=== PATIENT | male | born 1940 | race Hispanic/Latino ===

== ENCOUNTER 2017-11-08 18:32 | Emergency (ER) | payer MEDICARE ==
[2017-11-08] MEDS ORDERED: BISACODYL 10 MG SUPP.RECT RC ONE (19:45)
== END 2017-11-08 19:56 | disposition home or self-care (01) ==
LOC: EDH 18:32
DX: K59.00 Constipation, unspecified (principal); Z87.891 Personal history of nicotine dependence
CPT/HCPCS: 74018

== ENCOUNTER 2017-11-14 13:30 | Emergency (ER) | payer MEDICARE | END 2017-11-14 14:30 | disposition home or self-care (01) | LOC: EDH 13:30 | DX: M17.11 Unilateral primary osteoarthritis, right knee (principal) ==

== ENCOUNTER 2017-11-19 14:01 | Emergency (ER) | payer MEDICARE ==
[2017-11-19] MEDS ORDERED: KETOROLAC TROMETHAMINE 15MG/ML ONE (14:45)
[2017-11-19] MEDS ORDERED: DEXAMETHASONE SOD PHOSPHATE 4 MG/ML 1ML VIAL ONE (14:45)
== END 2017-11-19 15:37 | disposition home or self-care (01) ==
LOC: EDH 14:01
DX: G89.29 Other chronic pain (principal); M25.561 Pain in right knee
CPT/HCPCS: 96372 ×2; 99284; J1100; J1885

== ENCOUNTER 2017-11-28 17:45 | Emergency (ER) | payer MEDICARE ==
[2017-11-28 18:06] LABS: BASOPHILS % (AUTO) 0.2 % (0.0-5.0); EOSINOPHILS % (AUTO) 0.2 % (0.0-8.0); HEMATOCRIT 38.3 % (42-54); LYMPHOCYTES % (AUTO) 18.9 % (21.0-51.0); MEAN CORPUSCULAR HEMOGLOBIN 30.9 pg (27.0-33.0); MEAN CORPUSCULAR HGB CONC 34.4 g/dL (32.0-36.0); MEAN CORPUSCULAR VOLUME 89.9 fL (79-99); MONOCYTES % (AUTO) 9.2 % (3.0-13.0); NEUTROPHILS % (AUTO) 71.5 % (40.0-77.0); PLATELET COUNT (AUTO) 111 K/uL (130-400); RED BLOOD CELL COUNT(AUTO) 4.26 MIL/uL (4.50-6.20)
[2017-11-28 18:16] LABS: CREATININE 0.7 mg/dL (0.5-1.5); POTASSIUM 3.8 mmol/L (3.5-5.1)
[2017-11-28 18:21] LABS: ALBUMIN 3.6 g/dL (3.5-5.0); BILIRUBIN,TOTAL 0.6 mg/dL (0.2-1.0)
[2017-11-28] MEDS ORDERED: LACTULOSE 20 GM/30 ML UDCUP ONE (18:42)
== END 2017-11-28 19:11 | disposition home or self-care (01) ==
LOC: EDH 17:45
DX: K59.00 Constipation, unspecified (principal); R14.0 Abdominal distension (gaseous)
CPT/HCPCS: 36415; 74021; 80053; 85025

== ENCOUNTER 2017-12-20 20:01 | Emergency (ER) | payer OTHER, MEDICARE ==
[2017-12-20] MEDS ORDERED: DOCUSATE SODIUM 100 MG CAP PO ONE (23:12)
[2017-12-20 23:14] LABS: BASOPHILS % (AUTO) 0.8 % (0.0-5.0); EOSINOPHILS % (AUTO) 0.5 % (0.0-8.0); HEMATOCRIT 36.8 % (42-54); LYMPHOCYTES % (AUTO) 25.4 % (21.0-51.0); MEAN CORPUSCULAR HEMOGLOBIN 30.9 pg (27.0-33.0); MEAN CORPUSCULAR HGB CONC 34.5 g/dL (32.0-36.0); MEAN CORPUSCULAR VOLUME 89.6 fL (79-99); NEUTROPHILS % (AUTO) 64.3 % (40.0-77.0); PLATELET COUNT (AUTO) 86 K/uL (130-400); RED BLOOD CELL COUNT(AUTO) 4.11 MIL/uL (4.50-6.20); RED CELL DISTRIBUTION WIDTH 15.4 % (11.0-15.5); WHITE BLOOD COUNT (AUTO) 4.8 K/uL (4.8-10.8)
[2017-12-20 23:33] LABS: ALBUMIN 3.5 g/dL (3.5-5.0); BILIRUBIN,TOTAL 0.8 mg/dL (0.2-1.0); CREATININE 0.6 mg/dL (0.5-1.5); POTASSIUM 4.3 mmol/L (3.5-5.1); TOTAL PROTEIN, SERUM 6.9 g/dL (6.0-8.3)
== END 2017-12-20 23:26 | disposition home or self-care (01) ==
LOC: EDH 20:01
DX: R10.84 Generalized abdominal pain (principal); K59.00 Constipation, unspecified; M25.562 Pain in left knee; Z98.890 Other specified postprocedural states; Z87.891 Personal history of nicotine dependence
CPT/HCPCS: 36415; 74018; 80053; 83690; 85025

== ENCOUNTER 2018-04-03 13:33 | Inpatient (IN) | payer OTHER, MEDICARE ==
[~2018-04-03] VITALS: Ht 152.4 cm; Wt 39.0 kg
[2018-04-03] MEDS ORDERED: ACETAMINOPHEN 325 MG TAB ONE (14:15)
[2018-04-03 14:28] LABS: BASOPHILS % (AUTO) 0.2 % (0.0-5.0); HEMATOCRIT 39.1 % (42-54); LYMPHOCYTES % (AUTO) 7.6 % (21.0-51.0); MEAN CORPUSCULAR HGB CONC 33.7 g/dL (32.0-36.0); MEAN CORPUSCULAR VOLUME 88.9 fL (79-99); MONOCYTES % (AUTO) 3.8 % (3.0-13.0); NEUTROPHILS % (AUTO) 88.4 % (40.0-77.0); PLATELET COUNT (AUTO) 101 K/uL (130-400); RED CELL DISTRIBUTION WIDTH 15.4 % (11.0-15.5); WHITE BLOOD COUNT (AUTO) 10.9 K/uL (4.8-10.8)
[2018-04-03 14:51] LABS: ALBUMIN 3.3 g/dL (3.5-5.0); BILIRUBIN,TOTAL 1.6 mg/dL (0.2-1.0); CREATINE KINASE MB 0.7 ng/mL (0.5-3.6); CREATININE 1.3 mg/dL (0.5-1.5); TOTAL PROTEIN, SERUM 6.3 g/dL (6.0-8.3)
[2018-04-03 14:57] LABS: POTASSIUM 2.2 mmol/L (3.5-5.1)
[2018-04-03] MEDS ORDERED: POTASSIUM BICARB/CIT AC 25 MEQ TABLET.EFF ONE (16:22)
[2018-04-03] MEDS ORDERED: CEFTRIAXONE SODIUM 1 GM ONE (16:46)
[2018-04-03 17:03] LABS: APPEARANCE,URINE Clear (CLEAR); BILIRUBIN,URINE Moderate (NEGATIVE); COLOR,URINE Dark Yellow (YELLOW); GLUCOSE, URINE (UA) Negative (NEGATIVE); KETONES,URINE 40 mg/dL (NEGATIVE); LEUKOCYTE ESTERASE ,URINE Trace (NEGATIVE); NITRATE,URINE Negative (NEGATIVE); OCCULT BLOOD,URINE Negative (NEGATIVE); PROTEIN,URINE POS 1+ (NEGATIVE)
[2018-04-03 17:07] LABS: BACTERIA,URINE Rare /HPF (None Seen); RBC,URINE None Seen /HPF (0-1); SQUAMOUS EPITHELIAL CELL,UR Rare /HPF (0-2); WBC,URINE 0-1 /HPF (0-1)
[2018-04-03] MEDS ORDERED: SODIUM CHLORIDE 0.9% 1000ML 1,000 ML IV ONE (17:57)
[2018-04-03 22:10] VITALS: BP 119/67
[2018-04-03] MEDS: SODIUM CHLORIDE 0.9% 1000ML 1,000 ML IV SCH (23:15)
[2018-04-03 23:56] VITALS: BP 116/69
[2018-04-04] MEDS: ZOSYN 3.375GM+NS 50ML 50 ML IV SCH ×3 (02:02→17:06)
[2018-04-04 03:55] VITALS: BP 117/59
[2018-04-04 05:19] LABS: HEMATOCRIT 40.5 % (42-54); MEAN CORPUSCULAR HEMOGLOBIN 30.2 pg (27.0-33.0); MEAN CORPUSCULAR HGB CONC 33.7 g/dL (32.0-36.0); MEAN CORPUSCULAR VOLUME 89.7 fL (79-99); PLATELET COUNT (AUTO) 85 K/uL (130-400); RED BLOOD CELL COUNT(AUTO) 4.52 MIL/uL (4.50-6.20); RED CELL DISTRIBUTION WIDTH 15.9 % (11.0-15.5); WHITE BLOOD COUNT (AUTO) 10.6 K/uL (4.8-10.8)
[2018-04-04 06:03] LABS: POTASSIUM 2.9 mmol/L (3.5-5.1)
[2018-04-04 08:02] VITALS: BP 129/79
[2018-04-04] MEDS: ENOXAPARIN SODIUM 30 MG/0.3 ML SQ SCH (09:00)
[2018-04-04] MEDS: PANTOPRAZOLE SODIUM 40 MG TABLET.DR PO SCH ×2 (09:14→09:18)
[2018-04-04] MEDS ORDERED: POLYETHYLENE GLYCOL 3350 17 GM POWD.PACK PO PRN (11:15)
[2018-04-04 11:45] VITALS: BP 125/66
[2018-04-04] MEDS: KETOROLAC TROMETHAMINE 15MG/ML IV PRN (12:32)
[2018-04-04] MEDS: DEXTROSE 5%-WATER 1,000 ML IV SCH (12:33)
[2018-04-04] MEDS ORDERED: LIDOCAINE HCL-MPF 1% 2ML VIAL ONE (13:39)
[2018-04-04 13:49] LABS: RAPID PLASMA REAGIN NONREACTIVE (NONREACTIVE)
[2018-04-04] MEDS ORDERED: POTASSIUM CHLORIDE 10MEQ/100ML 10 MEQ/100 ML ML IV SCH (14:00)
[2018-04-04] MEDS: POTASSIUM CHLORIDE 10MEQ/100ML 100 ML IV SCH ×2 (14:01→20:17)
[2018-04-04] MEDS: SODIUM CHLORIDE 0.9% 1000ML 1,000 ML IV SCH (15:55)
[2018-04-04 16:48] VITALS: BP 132/72
[2018-04-04 19:49] VITALS: BP 124/74
[2018-04-05] VITALS (7 sets, daily range): BP systolic 118–137; BP diastolic 59–86
[2018-04-05] MEDS: ZOSYN 3.375GM+NS 50ML 50 ML IV SCH ×3 (01:46→16:56)
[2018-04-05 05:20] LABS: BASOPHILS % (AUTO) 0.1 % (0.0-5.0); HEMATOCRIT 39.5 % (42-54); LYMPHOCYTES % (AUTO) 7.6 % (21.0-51.0); MEAN CORPUSCULAR HEMOGLOBIN 30.3 pg (27.0-33.0); MEAN CORPUSCULAR HGB CONC 33.4 g/dL (32.0-36.0); MEAN CORPUSCULAR VOLUME 90.5 fL (79-99); MONOCYTES % (AUTO) 3.9 % (3.0-13.0); NEUTROPHILS % (AUTO) 88.4 % (40.0-77.0); PLATELET COUNT (AUTO) 73 K/uL (130-400); RED BLOOD CELL COUNT(AUTO) 4.36 MIL/uL (4.50-6.20); RED CELL DISTRIBUTION WIDTH 15.9 % (11.0-15.5)
[2018-04-05] MEDS: POTASSIUM CHLORIDE 10MEQ/100ML 100 ML IV SCH ×3 (05:29→23:07)
[2018-04-05 05:47] LABS: ALANINE AMINOTRANSFERASE 21 U/L (12-78); ASPARTATE AMINOTRANSFERASE 32 U/L (10-37); CARBON DIOXIDE 32 mmol/L (21-32); CHLORIDE 113 mmol/L (101-111); GLOMERULAR FILTR. RATE CALC 77 mL/min (>60); GLUCOSE,RANDOM 119 mg/dL (70-105); PHOSPHORUS 2.8 mg/dL (2.5-4.9); POTASSIUM 3.3 mmol/L (3.5-5.1); SODIUM SERUM 155 mmol/L (136-145); THYROID STIMULATING HORMONE 0.33 uIU/mL (0.36-3.74); TOTAL PROTEIN, SERUM 5.9 g/dL (6.0-8.3); UREA NITROGEN, BLOOD 23 mg/dL (7-18)
[2018-04-05 05:52] LABS: B-TYPE NATRIURETIC PEPTIDE 159 pg/mL (0-100)
[2018-04-05 06:04] LABS: AMMONIA < 3 umol/L (11-32)
[2018-04-05] MEDS: SODIUM CHLORIDE 0.9% 1000ML 1,000 ML IV SCH (08:35)
[2018-04-05] MEDS: PANTOPRAZOLE SODIUM 40 MG TABLET.DR PO SCH (08:55)
[2018-04-05] MEDS: ENOXAPARIN SODIUM 30 MG/0.3 ML SQ SCH (08:56)
[2018-04-05] MEDS ORDERED: LIDOCAINE HCL-MPF 1% 2ML VIAL ONE (14:12)
[2018-04-05 22:00] LABS: CREATININE 0.8 mg/dL (0.5-1.5); POTASSIUM 3.2 mmol/L (3.5-5.1)
[2018-04-06] MEDS: SODIUM CHLORIDE 0.9% 1000ML 1,000 ML IV SCH (01:15)
[2018-04-06] MEDS: ZOSYN 3.375GM+NS 50ML 50 ML IV SCH ×3 (01:43→18:08)
[2018-04-06 04:34] VITALS: BP 131/75
[2018-04-06 05:57] LABS: BASOPHILS % (AUTO) 0.3 % (0.0-5.0); HEMATOCRIT 40.2 % (42-54); LYMPHOCYTES % (AUTO) 7.1 % (21.0-51.0); MEAN CORPUSCULAR HGB CONC 33.1 g/dL (32.0-36.0); MEAN CORPUSCULAR VOLUME 90.5 fL (79-99); MONOCYTES % (AUTO) 5.1 % (3.0-13.0); NEUTROPHILS % (AUTO) 87.5 % (40.0-77.0); PLATELET COUNT (AUTO) 64 K/uL (130-400); RED BLOOD CELL COUNT(AUTO) 4.45 MIL/uL (4.50-6.20); WHITE BLOOD COUNT (AUTO) 7.4 K/uL (4.8-10.8)
[2018-04-06 06:04] LABS: CARBON DIOXIDE 34 mmol/L (21-32); CHLORIDE 113 mmol/L (101-111); CREATININE 0.8 mg/dL (0.5-1.5); GLOMERULAR FILTR. RATE CALC 100 mL/min (>60); GLUCOSE,RANDOM 130 mg/dL (70-105); PHOSPHORUS 2.6 mg/dL (2.5-4.9); POTASSIUM 3.2 mmol/L (3.5-5.1); SODIUM SERUM 154 mmol/L (136-145); UREA NITROGEN, BLOOD 18 mg/dL (7-18)
[2018-04-06 07:17] LABS: ACETONE,BLOOD NEGATIVE (NEGATIVE)
[2018-04-06 08:00] VITALS: BP 134/80
[2018-04-06 08:00] LABS: ABG HCO3 28.3 mmol/L (21.0-28.0); ABG OXYGEN SATURATION 97.9 % (95.0-99.0); ABG PCO2 37 mmHg (35-48)
[2018-04-06] MEDS: PANTOPRAZOLE SODIUM 40 MG TABLET.DR PO SCH (09:00)
[2018-04-06] MEDS: ENOXAPARIN SODIUM 30 MG/0.3 ML SQ SCH (09:00)
[2018-04-06] MEDS: DEXTROSE 5%-WATER 1,000 ML IV SCH ×2 (11:00→18:06)
[2018-04-06 12:00] VITALS: BP 130/75
[2018-04-06 16:00] VITALS: BP 127/73
[2018-04-06 20:02] VITALS: BP 120/71
[2018-04-06] MEDS ORDERED: POTASSIUM CHLORIDE 20 MEQ ERTAB PO PRN (21:00)
[2018-04-07] VITALS (22 sets, daily range): BP systolic 71–144; BP diastolic 48–81
[2018-04-07] MEDS: LIDOCAINE HCL-MPF 1% 2ML VIAL IVP PRN (01:16)
[2018-04-07] MEDS: ZOSYN 3.375GM+NS 50ML 50 ML IV SCH ×3 (01:16→16:45)
[2018-04-07] MEDS: POTASSIUM CHLORIDE 20MEQ/100ML 100 ML IV PRN (01:17)
[2018-04-07 06:47] LABS: INR 1.23 (0.85-1.15); PROTHROMBIN TIME 12.9 SEC (9.6-11.6)
[2018-04-07 07:01] LABS: MAGNESIUM 2.1 mg/dL (1.80-2.40); POTASSIUM 3.6 mmol/L (3.5-5.1)
[2018-04-07] MEDS: ENOXAPARIN SODIUM 30 MG/0.3 ML SQ SCH (09:00)
[2018-04-07] MEDS: PANTOPRAZOLE SODIUM 40 MG TABLET.DR PO SCH (09:00)
[2018-04-07] MEDS: SODIUM CHLORIDE 0.9% 1000ML 1,000 ML IV SCH (10:35)
[2018-04-07] MEDS: DEXTROSE 5%-WATER 1,000 ML IV SCH ×2 (11:00→16:45)
[2018-04-07] MEDS ORDERED: CEFAZOLIN SODIUM 1 GM VIAL ONE (12:02)
[2018-04-07] MEDS ORDERED: EPHEDRINE SULFATE 50 MG/ML AMPULE ONE (12:29)
[2018-04-07] MEDS: KETOROLAC TROMETHAMINE 15MG/ML IV PRN (21:41)
[2018-04-08] MEDS: ZOSYN 3.375GM+NS 50ML 50 ML IV SCH ×3 (01:51→16:41)
[2018-04-08 03:00] VITALS: BP 110/59
[2018-04-08 04:03] LABS: CREATININE,URINE RANDOM 248 mg/dL (30-135); SODIUM,URINE RANDOM 20 mmol/l (40-220)
[2018-04-08 06:23] LABS: POTASSIUM 2.9 mmol/L (3.5-5.1)
[2018-04-08] MEDS: LIDOCAINE HCL-MPF 1% 2ML VIAL IVP PRN (06:33)
[2018-04-08] MEDS: POTASSIUM CHLORIDE 20MEQ/100ML 100 ML IV PRN (06:33)
[2018-04-08 07:00] VITALS: BP 129/59
[2018-04-08] MEDS: SODIUM CHLORIDE 0.9% 1000ML 1,000 ML IV SCH (08:33)
[2018-04-08] MEDS: LANSOPRAZOLE 15 MG SOLU TAB PEG SCH (08:33)
[2018-04-08] MEDS: POTASSIUM CHLORIDE 10% ELIXIR 20 MEQ/15 ML UDCUP PO PRN ×4 (09:08→21:58)
[2018-04-08 10:38] LABS: HEMATOCRIT 35.6 % (42-54); MEAN CORPUSCULAR HEMOGLOBIN 29.9 pg (27.0-33.0); MEAN CORPUSCULAR HGB CONC 32.7 g/dL (32.0-36.0); MEAN CORPUSCULAR VOLUME 91.5 fL (79-99); PLATELET COUNT (AUTO) 54 K/uL (130-400); RED BLOOD CELL COUNT(AUTO) 3.89 MIL/uL (4.50-6.20); RED CELL DISTRIBUTION WIDTH 16.2 % (11.0-15.5)
[2018-04-08 10:45] LABS: CREATININE 0.7 mg/dL (0.5-1.5)
[2018-04-08 12:16] VITALS: BP 89/56
[2018-04-08 16:46] VITALS: BP 84/52
[2018-04-08] MEDS ORDERED: LACTATED RINGERS 1000ML 1,000 ML IV ONE (18:30)
[2018-04-08] MEDS ORDERED: LACTATED RINGERS 1000ML IV SCH (18:30)
[2018-04-08 20:00] VITALS: BP 81/50
[2018-04-08 23:58] VITALS: BP 91/48
[2018-04-09] MEDS: ZOSYN 3.375GM+NS 50ML 50 ML IV SCH ×3 (00:20→16:00)
[2018-04-09] MEDS: SODIUM CHLORIDE 0.9% 1000ML 1,000 ML IV SCH ×2 (00:22→05:36)
[2018-04-09] MEDS: DEXTROSE 5%-WATER 1,000 ML IV SCH (03:00)
[2018-04-09 04:00] VITALS: BP 100/49
[2018-04-09] MEDS: LANSOPRAZOLE 15 MG SOLU TAB PEG SCH (08:51)
[2018-04-09 11:41] VITALS: BP 97/69
[2018-04-09 16:00] VITALS: BP 102/57
[2018-04-09 20:00] VITALS: BP 104/59
== END 2018-04-09 21:45 | DRG 640 ==
LOC: EDH 13:33 → OBSVTOIN 17:38 → EDHIP 17:38 → 3DH 21:17
PROVIDERS: ADMIT Internal Medicine; ATTEND Internal Medicine
PROC: 0DJ08ZZ Inspection of Upper Intestinal Tract, Via Natural or Artificial Opening Endoscopic (ICD-10-PCS; principal; 2018-04-07)
PROC: 0DH68UZ Insertion of Feeding Device into Stomach, Via Natural or Artificial Opening Endoscopic (ICD-10-PCS; 2018-04-07)
DX: E86.0 Dehydration (principal); E43 Unspecified severe protein-calorie malnutrition; Z68.1 Body mass index [BMI] 19.9 or less, adult; K20.9 Esophagitis, unspecified; E86.9 Volume depletion, unspecified; E87.1 Hypo-osmolality and hyponatremia; D69.6 Thrombocytopenia, unspecified; M19.90 Unspecified osteoarthritis, unspecified site; K59.00 Constipation, unspecified; R13.12 Dysphagia, oropharyngeal phase; E87.8 Other disorders of electrolyte and fluid balance, not elsewhere classified; F03.90 Unspecified dementia, unspecified severity, without behavioral disturbance, psychotic disturbance, mood disturbance, and anxiety; J84.10 Pulmonary fibrosis, unspecified; Z74.01 Bed confinement status; Z87.891 Personal history of nicotine dependence
CPT/HCPCS: 36415; 36600; 70450; 71045; 74176; 80048; 80053; 81001; 82009; 82140; 82550; 82553; 82570; 82803; 83605; 83735; 83880; 83930; 83935; 84100; 84132; 84300; 84439; 84443; 84480; 84484; 85025; 85027; 85610; 86592; 86701; 87390; 87804; 92610; 93005; 93306; 97039; C9113; J0690; J0696; J1650; J1885; J2543; J3480; J3490; J7030; J7070; J7120